=== PATIENT | female | born 1945 | race Caucasian/White ===

== ENCOUNTER → 2018-05-30 | Outpatient (CLI) | payer MEDICARE, BC ==
[2018-05-30 13:59] LABS: Anisocytosis Slight; HCT 36.8 % (34.0-46.0); HGB 12.2 gm/dL (11.4-16.0); MCH 29.3 pg (25.0-35.0); MCHC 33.1 g/dL (31.0-37.0); MCV 88.7 fL (80.0-100.0); Mean Platelet Volume 6.8; Platelet Count 188 k/uL (150-450); Poikilocytosis Slight; RBC 4.14 m/uL (3.80-5.40); WBC 6.5 k/uL (3.8-10.6)
[2018-05-30 14:03] LABS: Albumin 4.4 g/dL (3.5-5.0); Calcium 9.7 mg/dL (8.4-10.2); Potassium 4.1 mmol/L (3.5-5.1); Total Bilirubin 0.6 mg/dL (0.2-1.3); Total Protein 8.3 g/dL (6.3-8.2)
[2018-05-30 14:06] LABS: Partial Thromboplastin Time 25.4 sec (22.0-30.0); Prothrombin Time 10.3 sec (9.0-12.0)
[2018-05-30 14:25] LABS: Appearance,Urine Clear (Clear); Bilirubin,Urine Negative (Negative); Blood,Urine Negative (Negative); Color,Urine Yellow; Glucose,Urine (UA) Negative (Negative); Ketones,Urine Negative (Negative); Leukocyte Esterase,Urine Small (Negative); Mucus,Urine Rare /hpf; Nitrite,Urine Negative (Negative); PH, Urine 6.5 (5.0-8.0); Protein,Urine Negative (Negative); RBC,Urine 1 /hpf (0-5); Specific Gravity,Urine 1.018 (1.001-1.035); Squamous Epithelial Cell,Urine 4 /hpf (0-4); Urobilinogen,Urine <2.0 mg/dL (<2.0); WBC,Urine 4 /hpf (0-5)
== END | disposition home or self-care (01) ==
LOC: LABPAT 13:18
PROVIDERS: ATTEND Orthopaedic Surgery Sports Medicine
DX: Z01.812 Encounter for preprocedural laboratory examination (principal); Z79.01 Long term (current) use of anticoagulants
CPT/HCPCS: 36415; 80053; 81001; 85027; 85610; 85730; 87070

== ENCOUNTER 2018-06-12 10:39 | Day surgery (SDC) | payer MEDICARE, BC ==
[~2018-06-12 10:39] MED LIST: ACETAMINOPHEN TAB 500 MG TAB PO ONE; DEXAMETHASONE SOD PHOSPHATE 10 MG/ML 1 ML VIAL IV ONE; HYDROmorphone 0.5 MG/0.5 ML SYRINGE IVP PRN; LACTATED RINGERS 1,000 ML IV SCH; LIDOCAINE 1% 20 ML VIAL (10MG/ML) FOR IV START INTRADERMA PRN; MELOXICAM 7.5 MG TAB PO ONE; MIDAZOLAM 2 MG/2 ML VIAL IV PRN; ONDANSETRON 4 MG/2 ML VIAL IVP ONE; ROPIVACAINE 246.25 MG, EPINEPHrine 0.5 MG, KETOROLAC 30 MG, cloNIDine HCL/PF 80 MCG, WA... MISCELLANE ONE; SCOPOLAMINE 1.5MG/72HR PATCH TRANSDERM ONE; TRANEXAMIC ACID 1,000 MG in SODIUM CHLORIDE 0.9% 100 ML IVPB ONE; ceFAZolin IN SWFI 2 GM/20 ML SYRINGE IVP ONE
[2018-06-12] MEDS ORDERED: BISACODYL 10 MG SUPP RECTAL PRN (12:26)
[2018-06-12] MEDS ORDERED: ACETAMINOPHEN TAB 325 MG TAB PO PRN (12:26)
[2018-06-12] MEDS ORDERED: HYDROcodone/APAP 10-325MG 1 EACH TAB PO PRN (12:26)
[2018-06-12] MEDS ORDERED: MAGNESIUM HYDROXIDE 2,400 MG/10 ML CUP PO PRN (12:26)
[2018-06-12] MEDS ORDERED: NA PHOS,M-B/NA PHOS,DI-BA 133 ML ENEMA RECTAL PRN (12:26)
[2018-06-12] MEDS ORDERED: NALOXONE 0.4 MG/ML 1 ML VIAL IV PRN (12:26)
[2018-06-12] MEDS ORDERED: traMADol 50 MG TAB PO PRN (12:26)
[2018-06-12] MEDS ORDERED: HYDROcodone/APAP 7.5-325MG 1 EACH TAB PO PRN (12:26)
[2018-06-12] MEDS ORDERED: hydrOXYzine PAMOATE 25 MG CAP PO PRN (12:26)
[2018-06-12] MEDS ORDERED: HYDROcodone/APAP 5-325MG 1 EACH TAB PO PRN (12:26)
[2018-06-12] MEDS ORDERED: TEMAZEPAM 15 MG CAP PO PRN (12:26)
[2018-06-12] MEDS ORDERED: DIAZEPAM 5 MG TAB PO PRN (12:26)
[2018-06-12] MEDS ORDERED: ONDANSETRON 4 MG/2 ML VIAL IVP PRN (12:26)
[2018-06-12] MEDS ORDERED: HYDROmorphone 0.5 MG/0.5 ML SYRINGE IVP PRN ×3 (12:26)
[2018-06-12] MEDS ORDERED: MIDAZOLAM 2 MG/2 ML VIAL ONE (13:09)
[2018-06-12] MEDS ORDERED: SODIUM CHLORIDE 0.9% 100 ML BAG ONE (13:09)
[2018-06-12] MEDS ORDERED: MORPHINE SULFATE (PF) 0.3 MG/0.3 ML SYR ONE (13:09)
[2018-06-12] MEDS ORDERED: fentaNYL (PF) 50 MCG/ML 2 ML AMP ONE (13:09)
[2018-06-12] MEDS ORDERED: TRANEXAMIC ACID 1,000 MG/10 ML VIAL ONE (13:09)
[2018-06-12] MEDS ORDERED: diphenhydrAMINE 50 MG/ML 1 ML VIAL ONE (13:09)
[2018-06-12] MEDS ORDERED: ceFAZolin 1,000 MG in SODIUM CHLORIDE 0.9% 1,000 ML IRRIGATION ONE (13:45)
[2018-06-12] MEDS ORDERED: LACTATED RINGERS 1,000 ML IV ONE (14:15)
--- NOTE | 2018-06-12 15:48 | XR ---
EXAMINATION TYPE: XR knee limited LT DATE OF EXAM: 06/12/2018 CLINICAL HISTORY: Postoperative evaluation Two views of the left knee are submitted. Identified are changes of total knee arthroplasty with fem oral and tibial components appearing well seated. Postsurgical soft tissue changes are noted. Align ment is anatomic.
[2018-06-12] MEDS: LACTATED RINGERS 1,000 ML IV SCH (16:04)
[2018-06-12 16:25] VITALS: BMI 31.1
[2018-06-12] MEDS ORDERED: traZODone HCL 50 MG TAB PO PRN (19:31)
--- NOTE | 2018-06-12 19:33 | P.CONS ---
History of Present Illness - Reason for Consult Consult date: 06/12/18 - History of Present Illness Patient is a 72-year-old female with a PMH of hypertension, psoriasis, and chronic bilateral knee osteoarthritis was seen for consult status post total left knee replacement. The patient reports that her pain is very well controlled, and at the time of interview was 0 out of 10. She otherwise was in good spirits and denied any active complaints. She reports no fever, chills, shortness of breath, chest pain, abdominal pain, nausea, or vomiting. Review of Systems Pertinent positives and negatives as discussed in HPI, a complete review of systems was performed and all other systems are negative. Past Medical History Past Medical History: Hyperlipidemia, Hypertension, Osteoarthritis (OA), Skin Disorder Additional Past Medical History / Comment(s): hx. of UTI's, psoriasis, leg swelling, hx. of Valley fever 4-5 yrs ago History of Any Multi-Drug Resistant Organisms: None Reported Past Surgical History: Hysterectomy Past Anesthesia/Blood Transfusion Reactions: Previous Problems w/ Anesthesia Additional Past Anesthesia/Blood Transfusion Reaction / Comm: slow to wake up Past Psychological History: Anxiety Smoking Status: Never smoker Past Alcohol Use History: Occasional Past Drug Use History: None Reported - Past Family History Sister(s) Family Medical History: Cancer Medications and Allergies Home Medications Medication Instructions Recorded Confirmed Type Acetaminophen Tab [Tylenol Tab] 1,000 mg PO Q6HR PRN 06/04/18 06/12/18 History Adalimumab [Humira] 80 mg SQ TH 06/04/18 06/12/18 History Atorvastatin [Lipitor] 20 mg PO HS 06/04/18 06/12/18 History Cholecalciferol [Vitamin D3] 5,000 unit PO DAILY 06/04/18 06/12/18 History Cider Vinegar [Apple Cider Vinegar] 300 mg PO DAILY 06/04/18 06/12/18 History Cranberry Fruit Extract [Theracran] 650 mg PO DAILY 06/04/18 06/12/18 History Cyanocobalamin (Vitamin B-12) 1,000 mcg PO DAILY 06/04/18 06/12/18 History [Vitamin B-12] Folic Acid 1 mg PO DAILY 06/04/18 06/12/18 History Methotrexate Sodium [Methotrexate] 25 mg PO FR 06/04/18 06/12/18 History Sertraline [Zoloft] 50 mg PO DAILY 06/04/18 06/04/18 History Triamterene-Hctz 37.5-25Mg 1 tab PO Q2D 06/04/18 06/04/18 History [Maxzide 37.5-25] Ubidecarenone [Co Q-10] 100 mg PO DAILY 06/04/18 06/12/18 History traZODone HCL 50 mg PO HS PRN 06/04/18 06/12/18 History Allergies Allergy/AdvReac Type Severity Reaction Status Date / Time adhesive tape AdvReac pulls skin Verified 06/12/18 11:01 off sulfamethoxazole AdvReac Abdominal Verified 06/12/18 11:01 [From Bactrim] Pain trimethoprim [From Bactrim] AdvReac Abdominal Verified 06/12/18 11:01 Pain Physical Exam Vitals: Vital Signs Temp Pulse Resp BP Pulse Ox 06/12/18 18:12 100 126/60 06/12/18 18:02 91 125/65 06/12/18 17:31 87 145/80 96 06/12/18 17:17 97 138/71 95 06/12/18 17:01 86 138/71 95 06/12/18 16:47 90 131/71 95 06/12/18 16:31 97.8 F 78 119/71 97 06/12/18 15:45 84 16 132/58 96 06/12/18 15:27 87 15 110/57 96 06/12/18 15:10 97.1 F L 88 16 125/61 97 06/12/18 11:07 97.4 F L 91 16 140/67 97 Intake and Output 06/12/18 06/12/18 06/12/18 06:59 14:59 22:59 Intake Total 2000 100 Output Total 100 Balance 1901 100 Intake: IV 2000 100 Output: Estimated Blood Loss 100 General: non toxic, no distress, appears at stated age, obese Derm: no unusual rashes/lesions no unusual ecchymoses, warm, dry Head: atraumatic, normocephalic, symmetric Eyes: EOMI, no lid lag, anicteric sclera, pupils equal round reactive to light ENT: Nose and ears atraumatic, no thrush, no pharyngeal erythema Neck: No thyromegaly, no cervical lymphadenopathy, trachea midline, supple Mouth: no lip lesion, mucus membranes moist Cardiovascular: S1S2 reg, no murmur, positive posterior tibial pulse bilateral, no edema, capillary refill less than 2 seconds Lungs: CTA bilateral, no rhonchi, no rales , no accessory muscle use Abdominal: soft, nontender to palpation, no guarding, no appreciable organomegaly, normal bowel sounds Ext: no gross muscle atrophy, muscle strength 5 out of 5 in all extremities except left lower extremity, left knee Ramana bandage in place, clean and dry, no contractures, Neuro: CN II-XI grossly intact, light touch intact all 4 extremities, finger to nose within normal limits, Psych: Alert, oriented, appropriate affect Assessment and Plan Plan: Hypertension -Resume home medications Status post total left knee replacement -As per orthopedic service Postoperative pain, currently well controlled -Continue with management as per orthopedic service Psoriasis -Patient was advised to hold her Humira injections for 2 weeks prior to surgery in 2 weeks following surgery -Will follow-up 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
[2018-06-12] MEDS: ATORVASTATIN 20 MG TAB PO SCH (21:33)
[2018-06-12] MEDS: ceFAZolin IN SWFI 2 GM/20 ML SYRINGE IVP SCH (21:33)
[2018-06-12] MEDS: ASPIRIN 325 MG TAB PO SCH (21:33)
[2018-06-12] MEDS: SENNOSIDES-DOCUSATE SODIUM 1 EACH TAB PO SCH (21:33)
--- NOTE | 2018-06-12 22:53 | OP ---
OPERATIVE REPORT DATE OF PROCEDURE: 06/12/2018 SURGEON: Gianni Lyman MD. SHELLAC POLISHER: Madhav VIVEROS. PREOPERATIVE DIAGNOSIS: Left knee osteoarthrosis. POSTOPERATIVE DIAGNOSIS: Left knee osteoarthrosis. OPERATION: Left total knee arthroplasty. ANESTHESIA: Spinal with sedation. ESTIMATED BLOOD LOSS: 100 mL. TOURNIQUET TIME: 49 minutes at 250 mmHg. COMPLICATIONS: None apparent. DRAINS: None. DISPOSITION: Post-Anesthesia Care Unit. INDICATIONS: Robert is a very pleasant 72-year-old female with a longstanding history of left knee pain. History and physical examination were consistent with advanced left knee osteoarthrosis. She has been through significant nonoperative management up to this point. Further treatment options were discussed and she decided to go forward with left total knee arthroplasty. The risks of the procedure were discussed with her in detail. These risks included but were not limited to risk of infection, nerve damage, bleeding, pain, and a small risk of deep vein thrombosis which could lead to fatal pulmonary embolism. There is also risk of loosening of the implant which could require revision operation. The patient understands these risks. All of her questions were answered to her satisfaction. Appropriate informed consent was obtained. DESCRIPTION OF THE PROCEDURE: The patient was identified in the preoperative holding area. Surgical site was marked by both the patient and myself. She was given 2 grams of Ancef IV for prophylactic purposes. She was then transferred to the operative suite. She was placed supine on the operating room table. Spinal anesthetic was then administered and dosed per the anesthesia department without apparent complication. Examination under anesthesia was then performed. The patient was 2-3 degrees shy of full extension. She had 100 degrees of flexion, and the medial collateral ligament, lateral collateral ligament and posterior cruciate ligaments were stable. Tourniquet was then placed high on the left upper thigh, well padded in preparation for surgery. The patient's left lower extremity was then prepped and draped in usual sterile fashion. Standard surgical pause was then undertaken to ensure that we were operating on the correct site and that appropriate preoperative antibiotics had been given. All staff in the room were in agreement and we proceeded. The outlines of the patella were marked with a surgical pen. A planned 12 cm vertical incision centered over the patella was marked with the surgical pen. The leg was then exsanguinated with an Esmarch dressing. The knee was then flexed and the tourniquet was inflated to 250 mmHg. The total tourniquet time for the procedure was 49 minutes. Incision was then made with a 10 blade scalpel. Dissection was carried down sharply to the overlying fascia. Great care was taken to minimize the skin flaps. The knee was then exposed using standard medial parapatellar approach. A small cuff of quadriceps tendon was left for suturing. She was in a bit of varus preoperatively. A standard medial release was then made. Superficial medial collateral ligament was dissected off of the bone around to the posterior aspect of the proximal tibia. The medial meniscus was then excised as well. The lateral meniscus was also released anteriorly. The leg was then externally rotated. The patella was everted. The knee was flexed. Retractors then placed to protect the collateral ligaments. I then proceeded to remove the infrapatellar fat pad. This was excised sharply tangentially with the fibers of the patellar tendon. I then proceeded to remove the peripheral osteophytes. This was done with a rongeur. I then proceeded with the distal femoral resection. She did have near-full extension. The planned 9 mm resection was then done. The femoral canal was then entered in the midline of the femur approximately 10 mm anterior to the origin of the posterior cruciate ligament. The lazaro was then advanced down to the center of the femur and placed intramedullary. Based on preoperative radiographs, the angle between the anatomic and mechanical axis of the femur was approximately 4-5 degrees. The valgus angle of the distal femoral cutting guide was then set at 4 degrees for the left knee. The distal femoral cutting guide was then advanced over the intramedullary lazrao. This was seated firmly against the femur. I then, as mentioned, planned to take 9 mm off the distal femur. The cutting block was then secured onto the femur with pins. The jig was removed. The distal femoral cut was made through the slot of the block. The pins were then removed and the distal femoral cutting block was removed. The accuracy of the distal femoral cuts was checked with 2 flat bars. I then proceeded to femoral sizing. Posterior referencing sizing guide was held firmly against the resected distal surface of the femur. The posterior condyles were resting on the posterior plane of the guide. The sizing guide was then placed on the anterior femur. The size was measured as a size 9. I then assessed for femoral rotation. Plan was for 3 degrees of external rotation. Three degrees of external rotation was placed onto the jig. The holes were then marked. I then confirmed the rotation by 3 separate methods. This was done using the epicondylar axis as well as Whitesides line and posterior referencing. It was deemed that the external rotation was proper. I then went forward with placing the femoral cutting block. This was placed over the previously placed pin holes. The Michel wing was then placed onto the anterior slots to ensure that we would not notch the anterior femur with the anterior femoral cut. I then proceeded with the anterior femoral cut. This was flush with the anterior cortex of the femur. The posterior cuts were then made followed by the anterior chamfer cut, then the posterior chamfer cut. The cutting block was then removed. Throughout the resection, the collateral ligaments were protected with retractors. I then placed a trial size 9 femur. It fit slightly wide mediolateral, but the narrow fit very well. The drill holes were then made. I then proceeded with the tibial cut. I planned for a cruciate-retaining knee. The guide was placed and set for varus, valgus and for slope. The height was set for an approximate 2 mm resection from the medial tibial plateau, which was the lower side. I was happy with the alignment and the amount of resection. The cutting block was then pinned to the proximal tibia. The alignment lazaro was removed and the proximal tibia was resected with a reciprocating saw. Again this was done with retractors protecting the collateral ligaments as well as the posterior cruciate ligament. I then proceeded to evaluate the flexion and extension gaps. A 10 mm block was then placed. The flexion and extension gaps were equal. I then proceeded with resection of the posterior osteophytes. She had very minimal posterior osteophytes. This was done using a curved osteotome. This resected the posterior osteophytes, and posterior capsule stripping was also done off the posterior aspect of the femur at this time. The osteophytes were then removed. I then proceeded with resection of the patella. The thickness of the patella was measured using the caliper. The thickness was 22 mm. The thickness of the anticipated patellar dome was taken into account. Resection was then performed and confirmed to be equal in 4 quadrants using a caliper. Approximately 14 mm of bone remained after the resection. A 32 x 8.5 mm standard patellar trial was then placed. The holes were drilled. The trial was then placed. I then proceeded with sizing the tibial plate. A size D tibial plate fit very nicely. I then placed the trial femur, the tibial tray and the patellar button. A 10 mm trial tibial insert was also placed. The components fit very nicely. She had full extension and flexion. The extension and flexion gaps were equal and stable to both varus and valgus stress. The patella tracked appropriately. Tibial tray rotation was marked with a Bovie. This was externally rotated properly. I then proceeded with tibial preparation. I first drilled the femoral holes and removed the femoral component. The tibial tray was then set for proper external rotation as well as mediolateral placement onto the tibia. It was then pinned into place. I then proceeded with punching the keel. I then decided to proceed with cementing of all of our components. The knee was thoroughly irrigated with sterile saline solution via pulse lavage. The lateral geniculate artery was identified and cauterized. All blood was removed from the bone of the tibia, femur and patella with pulse lavage. I then proceed with cementing. Two packs of antibiotic bone cement were prepared on the back table by the surgical physician assistant. I then proceeded with cementing of the tibia first. The cement was impacted into the keel as well as deeply seated into the bone. A second coat of cement was then placed. The tibia was then impacted into place. Excess cement was removed with Gilda's and jokers. I then proceeded with cementing of the femoral component. The femoral component was also cemented using standard technique. Excess cement was removed. A 10 mm trial insert was then placed into the knee. It was brought into full extension with a constant axial load placed until the cement had hardened. The patellar component was then cemented. This was held firmly with a compressive device until the cement had dried. When the cement had dried, the knee was taken out of extension. All excess cement was removed from around the prosthesis. I then trialed the knee with a 10 mm insert. Flexion and extension gaps were appropriate. The knee was stable. It came into full extension. I decided to go forward with a 10 mm cross-linked cruciate-retaining tibial insert. Polyethylene was then placed onto the tibial tray and locked into place. The knee was then reduced. The knee was again further irrigated with sterile saline solution with antibiotic added. The tourniquet was then deflated. The total tourniquet time for the procedure was 49 minutes at 250 mmHg. Final components were Danielle Persona size 9 narrow cruciate-retaining femoral component, a size D tibial tray, a 10 mm medial- congruent cruciate-retaining polyethylene insert and a 32 x 8.5 mm patella. I then proceeded with closure. Again the knee was thoroughly irrigated. The quadriceps tendon and the medial retinaculum were reapproximated with #2 Ethibond suture. The extensor mechanism was then closed with a running #2 Quill suture. Subcutaneous tissues were then closed with 2-0 Vicryl interrupted suture. The skin was closed with a running 3-0 Quill suture. Dermabond was applied to the incision. Sterile compressive dressings were then applied. All sponge and needle counts were deemed correct prior to closure. The patient tolerated the procedure without apparent complication. She was transferred to the recovery room in stable condition. MMODL / IJN: [id number] /
[2018-06-13] MEDS: LACTATED RINGERS 1,000 ML IV SCH ×2 (03:18→17:27)
[2018-06-13] MEDS: ceFAZolin IN SWFI 2 GM/20 ML SYRINGE IVP SCH (05:06)
[2018-06-13] MEDS: ASPIRIN 325 MG TAB PO SCH ×2 (08:38→20:29)
[2018-06-13] MEDS: SERTRALINE 50 MG TAB PO SCH (08:38)
[2018-06-13] MEDS: MULTIVITAMINS, THERA 1 EACH TAB PO SCH (08:38)
[2018-06-13 09:24] LABS: Basophils % (A) 0 %; Eosinophils % (A) 0 %; HCT 30.1 % (34.0-46.0); HGB 10.1 gm/dL (11.4-16.0); Lymphocytes # (A) 0.9 k/uL (1.0-4.8); Lymphocytes % (A) 10 %; MCH 29.7 pg (25.0-35.0); MCHC 33.6 g/dL (31.0-37.0); MCV 88.5 fL (80.0-100.0); Monocytes # (A) 0.3 k/uL (0-1.0); Monocytes % (A) 4 %; Neutrophils % (A) 83 %; Platelet Count 157 k/uL (150-450); Poikilocytosis Slight; RBC 3.41 m/uL (3.80-5.40); RDW 14.8 % (11.5-15.5); WBC 8.4 k/uL (3.8-10.6)
--- NOTE | 2018-06-13 10:04 | P.PN ---
Subjective Progress Note Date: 06/13/18 Patient was seen and examined at the bedside on 06/13/2018. She reports that her left knee pain continues to be well-controlled, and at time of the interview was a 0 out of 10. She has been ambulating to the restroom, having bowel movements and passing urine. She otherwise denied any active complaints and was in good spirits. She denied chest pain, shortness of breath, nausea, vomiting, abdominal pain, fever, or chills. Objective - Vital Signs Vital signs: Vital Signs Temp 98.0 F 06/13/18 07:24 Pulse 80 06/13/18 07:24 Resp 15 06/13/18 07:24 BP 91/55 06/13/18 07:24 Pulse Ox 95 06/13/18 07:24 Intake & Output 06/12/18 06/13/18 06/13/18 18:59 06:59 18:59 Intake Total 2101 600 480 Output Total 100 Balance 2000 600 480 Intake: IV 2101 Intake, IV Titration 600 Amount Lactated Ringers 1,000 ml 600 @ 75 mls/hr IV .[id number] [facility] Rx#:[id number] Oral 480 Output: Estimated Blood Loss 100 Other: # Voids 1 - Exam General: Non-toxic, in no acute distress, appears stated age, normal weight HEENT: NC/AT, anicteric sclerae, moist conjunctiva, no lid-lag, PERRLA Cardiovascular: S1/S2 wnl, no murmurs, rubs, or gallops Lungs: Clear to auscultation, normal respiratory effort, no accessory muscle use Abdominal: Soft, non-tender, non-distended, no guarding, rebound, or rigidity Skin: Warm, dry Extremities: No edema or contractures, left knee dressing in place, clean and dry Psychiatric: Alert and oriented to person, place and time, appropriate affect Neuro: CN II-XII grossly intact, Strength 5/5 in all extremities except left lower extremity, Speech intact, Sensation to light touch grossly intact throughout - Labs CBC & Chem 7: 06/13/18 08:25 Labs: Abnormal Lab Results - Last 24 Hours (Table) 06/13/18 Range/Units 08:25 RBC 3.41 L (3.80-5.40) m/uL Hgb 10.1 L (11.4-16.0) gm/dL Hct 30.1 L (34.0-46.0) % Lymphocytes # 0.9 L (1.0-4.8) k/uL Assessment and Plan Plan: Hypertension -C/w home medications Status post total left knee replacement -As per orthopedic service Postoperative pain, currently well controlled -Continue with management as per orthopedic service Psoriasis -Patient was advised to hold her Humira injections for 2 weeks prior to surgery in 2 weeks following surgery -Will follow-up with her outpatient 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
--- NOTE | 2018-06-13 10:35 | P.PN ---
Subjective Progress Note Date: 06/13/18 Principal diagnosis: S/P left TKA Patient is seen at bedside this morning. She is postop day #1 from left total knee arthroplasty. She has pain at the surgical site as expected but denies any new complaints. She denies numbness, tingling or calf pain. Review of systems is negative for fever, chills, chest pain, shortness of breath or other Objective - Vital Signs Vital signs: Vital Signs Temp 98.0 F 06/13/18 07:24 Pulse 80 06/13/18 07:24 Resp 15 06/13/18 07:24 BP 91/55 06/13/18 07:24 Pulse Ox 95 06/13/18 07:24 Intake & Output 06/12/18 06/13/18 06/13/18 18:59 06:59 18:59 Intake Total 2101 600 480 Output Total 100 Balance 2000 600 480 Intake: IV 2101 Intake, IV Titration 600 Amount Lactated Ringers 1,000 ml 600 @ 75 mls/hr IV .[id number] Rx#:[id number] Oral 480 Output: Estimated Blood Loss 100 Other: # Voids 1 2 - Exam Inspection reveals a benign surgical wound. There is no active bleeding or drainage. Neurovascular status is intact throughout the lower extremity with motor and sensation fully intact. Calf is soft and nontender. 2+ dorsalis ped is pulse and less than 2 second cap refill is present. - Constitutional General appearance: Present: no acute distress - Labs CBC & Chem 7: 06/13/18 08:25 Labs: Abnormal Lab Results - Last 24 Hours (Table) 06/13/18 Range/Units 08:25 RBC 3.41 L (3.80-5.40) m/uL Hgb 10.1 L (11.4-16.0) gm/dL Hct 30.1 L (34.0-46.0) % Lymphocytes # 0.9 L (1.0-4.8) k/uL Assessment and Plan (1) S/P total knee arthroplasty Narrative/Plan: She will continue with routine postop orthopedic protocol including pain management, wound care, PT, DVT prophylaxis and medical management. Expect that she will transfer to home tomorrow Current Visit: Yes Status: Acute Code(s): Z96.659 - PRESENCE OF UNSPECIFIED ARTIFICIAL KNEE JOINT SNOMED Code(s): 0041174703813 Time with Patient: Less than 30
[2018-06-13] MEDS: HYDROcodone/APAP 5-325MG 1 EACH TAB PO PRN ×2 (15:11→23:05)
[2018-06-13] MEDS: SENNOSIDES-DOCUSATE SODIUM 1 EACH TAB PO SCH (20:29)
[2018-06-13] MEDS: ATORVASTATIN 20 MG TAB PO SCH (20:29)
[2018-06-14] MEDS: LACTATED RINGERS 1,000 ML IV SCH ×2 (02:48→07:55)
[2018-06-14] MEDS: HYDROcodone/APAP 5-325MG 1 EACH TAB PO PRN ×4 (05:55→23:34)
[2018-06-14] MEDS: SERTRALINE 50 MG TAB PO SCH (08:00)
[2018-06-14] MEDS: MULTIVITAMINS, THERA 1 EACH TAB PO SCH (08:00)
[2018-06-14] MEDS: ASPIRIN 325 MG TAB PO SCH ×2 (08:00→20:03)
--- NOTE | 2018-06-14 08:57 | P.DS ---
Providers Expected date of discharge: 06/14/18 Attending physician: Gianni Lyman Consults: 06/12/18 12:26 Consult Physician Routine Consulting Provider: Gen Schwartz Consult Reason/Comments: post op medical management Do you want consulting provider notified?: Yes Primary care physician: Gato Cardoso MD - Discharge Diagnosis(es) (1) S/P total knee arthroplasty Patient was admitted to the OR on 06/12/2018 to undergo a left total knee arthroplasty. She had failed conservative measures as an outpatient and desired to proceed with elective surgery after given informed consent. She underwent the above procedure which she tolerated well without complication. Postoperative hospital course has remained without complication. On day of discharge she is afebrile, vital signs stable, labs within acceptable ranges, tolerating by mouth meds and diet, voiding without difficulty, positive flatus, denies abdominal pain or calf pain, pain is controlled on oral pain medication and has no new c omplaints. Wound is benign, neurovascular status is intact, calf is soft and nontender, abdomen soft and nontender. Review of systems is negative for numbness, tingling, fever, chills, chest pain, shortness breath, nausea, vomiting, dizziness, headaches, slurred speech or other Current Visit: Yes Status: Acute Priority: Medium Procedures: Left TKA Patient Condition at Discharge: Good Plan - Discharge Summary Discharge Rx Participant: Yes New Discharge Prescriptions: New Aspirin 325 mg PO BID #60 tab Docusate [Colace] 100 mg PO BID #60 capsule HYDROcodone/APAP 7.5-325MG [[place] 7.5-325] 1 - 2 tab PO Q6HR PRN #56 tab PRN Reason: Pain No Action traZODone HCL 50 mg PO HS PRN PRN Reason: sleeping Folic Acid 1 mg PO DAILY Cholecalciferol [Vitamin D3] 5,000 unit PO DAILY Atorvastatin [Lipitor] 20 mg PO HS Acetaminophen Tab [Tylenol Tab] 1,000 mg PO Q6HR PRN PRN Reason: Pain Triamterene-Hctz 37.5-25Mg [Maxzide 37.5-25] 1 tab PO Q2D Sertraline [Zoloft] 50 mg PO DAILY Methotrexate Sodium [Methotrexate] 25 mg PO FR Ubidecarenone [Co Q-10] 100 mg PO DAILY Cyanocobalamin (Vitamin B-12) [Vitamin B-12] 1,000 mcg PO DAILY Cranberry Fruit Extract [Theracran] 650 mg PO DAILY Cider Vinegar [Apple Cider Vinegar] 300 mg PO DAILY Adalimumab [Humira] 80 mg SQ TH Discharge Medication List Acetaminophen Tab [Tylenol Tab] 1,000 mg PO Q6HR PRN 06/04/18 [History] Adalimumab [Humira] 80 mg SQ TH 06/04/18 [History] Atorvastatin [Lipitor] 20 mg PO HS 06/04/18 [History] Cholecalciferol [Vitamin D3] 5,000 unit PO DAILY 06/04/18 [History] Cider Vinegar [Apple Cider Vinegar] 300 mg PO DAILY 06/04/18 [History] Cranberry Fruit Extract [Theracran] 650 mg PO DAILY 06/04/18 [History] Cyanocobalamin (Vitamin B-12) [Vitamin B-12] 1,000 mcg PO DAILY 06/04/18 [History] Folic Acid 1 mg PO DAILY 06/04/18 [History] Methotrexate Sodium [Methotrexate] 25 mg PO FR 06/04/18 [History] Sertraline [Zoloft] 50 mg PO DAILY 06/04/18 [History] Triamterene-Hctz 37.5-25Mg [Maxzide 37.5-25] 1 tab PO Q2D 06/04/18 [History] Ubidecarenone [Co Q-10] 100 mg PO DAILY 06/04/18 [History] traZODone HCL 50 mg PO HS PRN 06/04/18 [History] Aspirin 325 mg PO BID #60 tab 06/14/18 [Rx] Docusate [Colace] 100 mg PO BID #60 capsule 06/14/18 [Rx] HYDROcodone/APAP 7.5-325MG [[place] 7.5-325] 1 - 2 tab PO Q6HR PRN #56 tab 0 04/30 [Rx] Follow up Appointment(s)/Referral(s): [facility]idential [facility] [NON-STAFF] - As Needed Activity/Diet/Wound Care/Special Instructions: Keep wound clean and dry Take meds as directed Follow-up with Dr. Lyman in office Weight bear as tolerated May shower in 3 days if no bleeding Discharge Disposition: HOME WITH HOME HEALTH SERVICES
--- NOTE | 2018-06-14 09:20 | P.PN ---
Subjective Progress Note Date: 06/14/18 Patient was seen and examined at the bedside on 06/14/2018. Patient notes that her knee is sore this morning, with left thigh pain, 4 out of 10. She has however been ambulating to the bathroom with a walker. The patient notes that she has in fact not had a bowel movement since admission though has been passing urine. She otherwise denied any active complaints and is eager to be discharged. She denied chest pain, shortness of breath, nausea, vomiting, fever, or chills. Objective - Vital Signs Vital signs: Vital Signs Temp 97.8 F 06/14/18 07:00 Pulse 90 06/14/18 07:00 Resp 16 06/14/18 07:00 BP 98/60 06/14/18 07:00 Pulse Ox 95 06/14/18 07:00 Intake & Output 06/13/18 06/14/18 06/14/18 18:59 06:59 18:59 Intake Total 1140 480 Balance 1140 480 Intake: Oral 1140 480 Other: Voiding Method Toilet # Voids 2 2 - Exam General: Non-toxic, in no acute distress, appears stated age, normal weight HEENT: NC/AT, anicteric sclerae, moist conjunctiva, no lid-lag, PERRLA Cardiovascular: S1/S2 wnl, no murmurs, rubs, or gallops Lungs: Clear to auscultation, normal respiratory effort, no accessory muscle use Abdominal: Soft, non-tender, non-distended, no guarding, rebound, or rigidity Skin: Warm, dry Extremities: No edema or contractures, left knee dressing in place, clean and dry Psychiatric: Alert and oriented to person, place and time, appropriate affect Neuro: CN II-XII grossly intact, Strength 5/5 in all extremities except left lower extremity, Speech intact, Sensation to light touch grossly intact throughout - Labs CBC & Chem 7: 06/13/18 08:25 Labs: Abnormal Lab Results - Last 24 Hours (Table) 06/13/18 Range/Units 08:25 RBC 3.41 L (3.80-5.40) m/uL Hgb 10.1 L (11.4-16.0) gm/dL Hct 30.1 L (34.0-46.0) % Lymphocytes # 0.9 L (1.0-4.8) k/uL Assessment and Plan Plan: Hypertension -C/w home medications Status post total left knee replacement -As per orthopedic service -Scheduled for discharge for today Postoperative pain, currently well controlled -Continue with management as per orthopedic service -Will be discharged on [place] and aspirin 325 twice a day Psoriasis -Patient was advised to hold her Humira injections for 2 weeks prior to surgery in 2 weeks following surgery -She will follow-up with her outpatient business economist
[2018-06-14] MEDS: TRIAMTERENE-HCTZ 37.5-25MG 1 EACH TAB PO SCH ×2 (09:26→12:20)
[2018-06-14] MEDS: SENNOSIDES-DOCUSATE SODIUM 1 EACH TAB PO SCH (20:03)
[2018-06-14] MEDS: ATORVASTATIN 20 MG TAB PO SCH (20:03)
[2018-06-15] MEDS: LACTATED RINGERS 1,000 ML IV SCH (01:05)
[2018-06-15 08:02] LABS: Basophils % (A) 0 %; Eosinophils # (A) 0.2 k/uL (0-0.7); Eosinophils % (A) 3 %; HCT 30.8 % (34.0-46.0); HGB 10.1 gm/dL (11.4-16.0); Lymphocytes # (A) 0.7 k/uL (1.0-4.8); Lymphocytes % (A) 12 %; MCHC 32.7 g/dL (31.0-37.0); MCV 88.6 fL (80.0-100.0); Mean Platelet Volume 6.5; Monocytes # (A) 0.2 k/uL (0-1.0); Monocytes % (A) 4 %; Neutrophils # (A) 4.3 k/uL (1.3-7.7); Neutrophils % (A) 78 %; Platelet Count 147 k/uL (150-450); RBC 3.48 m/uL (3.80-5.40); RDW 14.4 % (11.5-15.5); WBC 5.5 k/uL (3.8-10.6)
[2018-06-15 08:42] VITALS: BP 140/71; PULSE 95; RESP 16; TEMP 98.7
[2018-06-15] MEDS: ASPIRIN 325 MG TAB PO SCH (09:01)
[2018-06-15] MEDS: HYDROcodone/APAP 5-325MG 1 EACH TAB PO PRN (09:01)
[2018-06-15] MEDS: SERTRALINE 50 MG TAB PO SCH (09:02)
--- NOTE | 2018-06-15 09:44 | P.PN ---
Progress Note - Text Progress Note Date: 06/15/18 This is a 72-year-old female who is status post total left knee arthroplasty. Her discharge was held yesterday for pain management. She is doing better today. Vital signs and labs are stable. Incision looks good with no erythema or drainage. There is mild ecchymosis. Neurovascular status to the lower extremities intact. The patient is discharged to home in good condition. Please see previous discharge summary and med rec for accurate list of home medications.
== END 2018-06-15 13:36 | disposition home health service (06) ==
LOC: OR 10:39 → EDSTATUS 12:30 → 4SSUR 15:31 → OR 06-15 13:36
PROVIDERS: ATTEND Orthopaedic Surgery Sports Medicine
DX: M17.12 Unilateral primary osteoarthritis, left knee (principal); L40.9 Psoriasis, unspecified; I10 Essential (primary) hypertension; J98.4 Other disorders of lung; F32.9 Major depressive disorder, single episode, unspecified; K74.60 Unspecified cirrhosis of liver; E78.5 Hyperlipidemia, unspecified; Z87.440 Personal history of urinary (tract) infections; Z87.09 Personal history of other diseases of the respiratory system; Z79.899 Other long term (current) drug therapy; Z88.1 Allergy status to other antibiotic agents; Z88.8 Allergy status to other drugs, medicaments and biological substances; Z88.2 Allergy status to sulfonamides
CPT/HCPCS: 27447; 97116; 97162; 85025 ×2; 88300; 73560; C1776; C1713; J2250; J0171; J1200; J1100; J2405; J0690 ×3; J2274; J3010; J1885; J2795; J0735; J1170

== ENCOUNTER → 2020-05-24 | Outpatient (CLI) | payer MEDICARE, BC ==
[2020-05-24 16:18] LABS: Appearance,Urine Cloudy (Clear); Bacteria,Urine Occasional /hpf; Bilirubin,Urine Negative (Negative); Blood,Urine Negative (Negative); Color,Urine Yellow; Glucose,Urine (UA) Negative (Negative); Ketones,Urine Negative (Negative); Leukocyte Esterase,Urine Large (Negative); Mucus,Urine Rare /hpf; Nitrite,Urine Negative (Negative); PH, Urine 6.5 (5.0-8.0); Protein,Urine Negative (Negative); RBC,Urine 1 /hpf (0-5); Specific Gravity,Urine 1.018 (1.001-1.035); Squamous Epithelial Cell,Urine 8 /hpf (0-4); Urobilinogen,Urine <2.0 mg/dL (<2.0); WBC,Urine 11 /hpf (0-5)
[2020-05-24 17:36] LABS: Albumin 4.2 g/dL (3.5-5.0); Calcium 9.6 mg/dL (8.4-10.2); HCT 33.4 % (34.0-46.0); HGB 11.6 gm/dL (11.4-16.0); MCH 28.6 pg (25.0-35.0); MCHC 34.8 g/dL (31.0-37.0); MCV 82.3 fL (80.0-100.0); Mean Platelet Volume 7.2; Platelet Count 150 k/uL (150-450); Potassium 4.3 mmol/L (3.5-5.1); RBC 4.06 m/uL (3.80-5.40); RDW 14.7 % (11.5-15.5); Total Bilirubin 0.6 mg/dL (0.2-1.3); Total Protein 8.8 g/dL (6.3-8.2); WBC 5.7 k/uL (3.8-10.6)
[2020-05-24 17:41] LABS: Partial Thromboplastin Time 24.1 sec (22.0-30.0); Prothrombin Time 10.6 sec (9.0-12.0)
== END | disposition home or self-care (01) ==
LOC: LABPAT 14:56
PROVIDERS: ATTEND Orthopaedic Surgery Sports Medicine
DX: Z01.818 Encounter for other preprocedural examination (principal); Z01.812 Encounter for preprocedural laboratory examination
CPT/HCPCS: 36415; 80053; 81001; 85027; 85610; 85730; 87070; 93005

== ENCOUNTER 2020-06-03 05:36 | Day surgery (SDC) | payer MEDICARE, BC ==
[2020-05-31 16:06] VITALS: BMI 31.7
[~2020-06-03 05:36] MED LIST changes: -ACETAMINOPHEN TAB 500 MG TAB PO ONE; +ACETAMINOPHEN TAB 500 MG TAB PO PRN; -DEXAMETHASONE SOD PHOSPHATE 10 MG/ML 1 ML VIAL IV ONE; +GABAPENTIN 300 MG CAP PO PRN; -HYDROmorphone 0.5 MG/0.5 ML SYRINGE IVP PRN; -LACTATED RINGERS 1,000 ML IV SCH; -LIDOCAINE 1% 20 ML VIAL (10MG/ML) FOR IV START INTRADERMA PRN; -MELOXICAM 7.5 MG TAB PO ONE; +MELOXICAM 7.5 MG TAB PO PRN; -MIDAZOLAM 2 MG/2 ML VIAL IV PRN; -ONDANSETRON 4 MG/2 ML VIAL IVP ONE; +ONDANSETRON 4 MG/2 ML VIAL IVP PRN; -ROPIVACAINE 246.25 MG, EPINEPHrine 0.5 MG, KETOROLAC 30 MG, cloNIDine HCL/PF 80 MCG, WA... MISCELLANE ONE; +ROPIVACAINE/EPI/CLONIDINE/KET 50 ML SYRINGE MISCELLANE PRN; -SCOPOLAMINE 1.5MG/72HR PATCH TRANSDERM ONE; -TRANEXAMIC ACID 1,000 MG in SODIUM CHLORIDE 0.9% 100 ML IVPB ONE; +TRANEXAMIC ACID 1,000 MG in SODIUM CHLORIDE 0.9% 100 ML IVPB PRN; -ceFAZolin IN SWFI 2 GM/20 ML SYRINGE IVP ONE
[2020-06-03] MEDS ORDERED: ONDANSETRON 4 MG/2 ML VIAL IVP ONE (06:11)
[2020-06-03] MEDS ORDERED: MIDAZOLAM 2 MG/2 ML VIAL IV PRN (06:11)
[2020-06-03] MEDS ORDERED: DEXAMETHASONE SOD PHOSPHATE 4 MG/ML 1 ML VIAL IV ONE (06:11)
[2020-06-03] MEDS: LACTATED RINGERS 1,000 ML IV SCH ×3 (06:32→21:14)
[2020-06-03] MEDS ORDERED: LIDOCAINE 1% (10MG/ML) FOR IV START INTRADERMA ONE (06:33)
[2020-06-03] MEDS ORDERED: TRANEXAMIC ACID 1,000 MG/10 ML VIAL ONE (06:55)
[2020-06-03] MEDS ORDERED: SODIUM CHLORIDE 0.9% 100 ML BAG ONE (06:55)
[2020-06-03] MEDS ORDERED: MIDAZOLAM 2 MG/2 ML VIAL ONE (06:55)
[2020-06-03] MEDS ORDERED: ROPIVACAINE 5 MG/ML 30 ML VIAL ONE (06:55)
[2020-06-03] MEDS ORDERED: fentaNYL (PF) 50 MCG/ML 2 ML AMP ONE (06:55)
[2020-06-03] MEDS ORDERED: PROPOFOL 10 MG/ML 20 ML VIAL IV ONE (06:55)
[2020-06-03] MEDS ORDERED: HYDROmorphone 0.5 MG/0.5 ML SYRINGE IVP PRN ×3 (07:00→08:58)
[2020-06-03] MEDS ORDERED: LACTATED RINGERS 1,000 ML IV ONE (07:56)
[2020-06-03] MEDS ORDERED: bisacodyL 10 MG SUPP RECTAL PRN (08:58)
[2020-06-03] MEDS ORDERED: NALOXONE 0.4 MG/ML 1 ML VIAL IV PRN (08:58)
[2020-06-03] MEDS ORDERED: ACETAMINOPHEN TAB 325 MG TAB PO PRN (08:58)
[2020-06-03] MEDS ORDERED: diazePAM 5 MG TAB PO PRN (08:58)
[2020-06-03] MEDS ORDERED: HYDROcodone/APAP 10-325MG 1 EACH TAB PO PRN (08:58)
[2020-06-03] MEDS ORDERED: traMADol 50 MG TAB PO PRN (08:58)
[2020-06-03] MEDS ORDERED: MAGNESIUM HYDROXIDE 2,400 MG/10 ML CUP PO PRN (08:58)
[2020-06-03] MEDS ORDERED: TEMAZEPAM 15 MG CAP PO PRN (08:58)
[2020-06-03] MEDS ORDERED: HYDROmorphone 0.2 MG/1 ML SYRINGE IVP PRN (08:58)
[2020-06-03] MEDS ORDERED: NA PHOS,M-B/NA PHOS,DI-BA 133 ML ENEMA RECTAL PRN (08:58)
[2020-06-03] MEDS ORDERED: ONDANSETRON 4 MG/2 ML VIAL IVP PRN (08:58)
[2020-06-03] MEDS ORDERED: ROPIVACAINE 0.2%-NS ON-Q PUMP 1,090 MG, EMPTY PAIN BALL 1 EACH MISCELLANE PRN (09:09)
--- NOTE | 2020-06-03 09:11 | P.ANPRN ---
Procedure Note - Anesthesia - Nerve Block Performed Right Adductor Canal Infusion Time Out Performed: Yes Date of Procedure: 06/03/20 Procedure Start Time: 06:53 Procedure Stop Time: 06:58 Location of Patient: PreOp Indication: Acute Post-Operative Pain, Requested by Surgeon Sedation Type: Sedate with meaningful contact maintained Preparation: Sterile Prep, Sterile Dressing Position: Supine Catheter: Indwelling Needle Types: Pajunk Needle Gauge: 21 Ultrasound used to visualize needle placement: Yes Ultrasound used to observe medication spread: Yes Blood Aspirated: No Pain Paresthesia on Injection Noted: No Resistance on Injection: Normal Image Stored and Saved: Yes Events: Uneventful and Well Tolerated (ropi .5% 20cc plus dexametasone 4mg)
--- NOTE | 2020-06-03 09:37 | XR ---
EXAMINATION TYPE: XR knee limited RT DATE OF EXAM: 06/03/2020 CLINICAL HISTORY: Right knee pain and arthritis status post total knee replacement. TECHNIQUE: Portable AP and crosstable lateral views of the right knee are obtained immediately posto peratively. COMPARISON: None FINDINGS: Metallic hardware from total right knee arthroplasty is seen and appears satisfactory in a lignment and position. There is evidence of recent surgery with diffuse subcutaneous gas and soft ti ssue swelling extending superiorly noted. IMPRESSION: METALLIC HARDWARE FROM TOTAL RIGHT KNEE ARTHROPLASTY IS SATISFACTORY IN ALIGNMENT.
--- NOTE | 2020-06-03 11:21 | OP ---
OPERATIVE REPORT DATE OF PROCEDURE: 06/03/2020. SURGEON: Gianni Lmyan MD. SOFTWARE ENGINEERING PROJECT MANAGER: Madhav VIVEROS. PREOPERATIVE DIAGNOSIS: Right knee osteoarthrosis. POSTOPERATIVE DIAGNOSIS: Right knee osteoarthrosis. OPERATION: Right total knee arthroplasty. ANESTHESIA: Spinal with sedation. ESTIMATED BLOOD LOSS: 100 mL. TOURNIQUET: Tourniquet time was 45 minutes at 250 mmHg. COMPLICATIONS: None apparent. DRAINS: None. DISPOSITION: Postanesthesia care unit. INDICATIONS: Robert is a very pleasant 74-year-old female with longstanding history of right knee pain. History and physical examination are consistent with advanced right knee osteoarthrosis. She has been through significant nonoperative management up to this point. Further treatment options were discussed and she has decided to go for the right total knee arthroplasty. The risks of procedure were discussed with her in detail. These risks include, but are not limited to risk of infection, nerve damage, bleeding, pain, and a small risk of deep vein thrombosis which could lead to fatal pulmonary embolism. There is also risk of loosening of the implant which could require revision operation. The patient understands these risks. All of her questions were answered to her satisfaction. An appropriate informed consent was obtained. DESCRIPTION OF THE PROCEDURE: The patient identified in preoperative holding area. The surgical site was marked by both the patient and myself. She was given 2 grams of Ancef IV for prophylactic purposes. She was then transferred to the operative suite. She was placed supine on the operating room table. A spinal anesthetic was then administered and dosed per the anesthesia department without apparent complication. Examination under anesthesia was then performed. The patient was 2-3 degrees shy of full extension. She had 100 degrees of flexion. The medial collateral ligament, lateral collateral ligament and posterior cruciate ligaments were stable. Tourniquet was then placed high on the right upper thigh well-padded in preparation for surgery. The patient's right lower extremity was than prepped and draped in the usual sterile fashion. Standard surgical pause was undertaken to ensure that we were operating on the correct site and that appropriate preoperative antibiotics had been given. All staff in the room were in agreement and we proceeded. The outlines of the patella were marked with surgical pen. A planned 12 cm vertical incision was centered over the patella. It was marked with surgical pen. Leg was then exsanguinated with an Esmarch dressing. The knee was then flexed and the tourniquet was inflated to 250 mmHg. The total tourniquet time for the procedure was 45 minutes. Incision was then made with a 10 blade scalpel. Dissection was carried down sharply to overlying fascia. Great care was taken to minimize the skin flaps. The knee was then exposed using a standard medial parapatellar approach. A small cuff of quadriceps tendon was then left for suturing. She was in a bit of varus preoperatively. A standard medial release was then made. The superficial medial collateral ligament was dissected off of the bone around to the posterior aspect of the proximal tibia. The medial meniscus was then excised as well. The lateral meniscus was also released anteriorly. The leg was then externally rotated. The patella was everted. The knee was flexed. The retractor was then placed to protect the collateral ligaments. I then proceeded to remove the infrapatellar fat pad. This was excised sharply tangentially with fibers of the patellar tendon. I then proceeded to remove the peripheral osteophytes. This was done with a rongeur. I then proceeded with the distal femoral resection. She did have near full extension. A planned 9 mm resection was then done. The femoral canal was then entered in midline in the femur approximately 10 mm anterior to the origin of the posterior cruciate ligament. The lazaro was then advanced on the center of the femur and placed intramedullary. Based on the preoperative radiographs, the angle between the anatomic and mechanical axis of the femur was approximately 4-5 degrees. The valgus angle of the distal femoral cutting guide was then set at 4 degrees for the right knee. The distal cutting guide was then advanced over the intramedullary lazaro. This was seated firmly against the femur. I then as mentioned planned to take 9 mm off the distal femur. The cutting block was then secured onto the femur with pins. The jig was then removed. The distal femoral cut was made through the slot of the block. The pins were then removed. The distal femoral cutting block was removed. The accuracy of the distal femoral cuts was checked with 2 flat bars. I then proceeded with femoral sizing. Posterior referencing sizing guide was held firmly against the resected distal surface of the femur. The posterior condyles were resting on the posterior plane of the guide. The sizing stylus was then placed onto the anterior femur. The size was measured as a size 8. I then assessed for femoral rotation. Plan was for 3 degrees of external rotation. Three degrees of external rotation was placed onto the jig. These holes were then marked. I then confirmed the rotation by 3 separate methods. This was done using epicondylar axis as well as Whitesides line and posterior referencing. It was deemed that the external rotation was proper. I then went forward placing the femoral cutting block. This was placed over the previously placed pin holes. The Michel wing was then placed onto the anterior slots to ensure that we would not notch the anterior femur with the anterior femoral cut. I then proceeded with the anterior femoral cut. This was flush with the anterior cortex of the femur. Posterior cuts were then made followed by the anterior chamfer cut, then the posterior chamfer cut. The cutting block was then removed. Throughout the resection, the collateral ligaments were protected with retractors. I then placed a trial size 8 femur. It was slightly wide mediolateral, but the narrow fit very nicely and it fit flush with the distal end of the femur. The drill holes were then made. I then proceeded with the tibial cut. I planned for cruciate retaining knee. The guide was placed and set for varus, valgus and for slope. The height was set for approximate 2 mm resection from the medial tibial plateau which was the lower side. I was happy with the alignment and the amount of resection. The cutting block was then pinned to the proximal tibia. The alignment lazaro was removed. The proximal tibia was resected with a reciprocating saw. Again, this was done with retractors protecting the collateral ligaments as well as the posterior cruciate ligament. I then proceeded to evaluate the flexion and extension gaps. A 10 mm block was then placed. The flexion and extension gaps were equal. I then proceeded with resection of posterior osteophytes. She had very minimal posterior osteophytes. This was done using curved osteotome. This resected the posterior osteophytes and posterior capsule stripping was done off the posterior aspect of the femur at this time. The osteophytes were then removed. I then proceeded with resection of the patella. The thickness of the patella was measured using the caliper. The thickness was 22 mm. The thickness of the anticipated patellar dome was taken into account. Resection was then performed and confirmed to be equal in 4 quadrants using a caliper. Approximately 14 mm of bone remained after resection. A 29 x 8 mm standard patellar trial was then placed. The holes were drilled and the trial was then placed. I then proceeded with sizing tibial plate. A size D tibial plate fit very nicely. I then proceeded to trial the femur, the tibial tray and patellar button. A 10 mm trial tibial insert was also placed. The components fit very nicely. She had full extension and flexion. The extension and flexion gaps were equal and stable to both varus and valgus stress. The patella tracked appropriately. The tibial tray rotation was then marked with a Bovie. This was externally rotated properly. I then proceed with tibial preparation. I first drilled the femoral holes and removed femoral component. Tibial tray was then set for proper external rotation as well as mediolateral placement onto the tibia. It was then pinned into place. I then proceeded with punching the keel. I then proceeded with cementing of all of our components. The knee was thoroughly irrigated with sterile saline solution via pulse lavage. The lateral geniculate artery was identified and cauterized. All blood was removed from the bone of the tibia, femur and patella with pulse lavage. I then proceed with cementing. Two packs of antibiotic bone cement prepared on the back table by the electromechanical technician. I then proceeded with cementing the tibia first. The cement was impacted in the keel as well as deeply seated into the bone. A second coat cement was then placed. The tibia was then impacted into place. Excess cement was removed with Gilda's and Joker's. I then proceeded with cementing the femoral component. The femoral component was also cemented using standard technique. Excess cement was removed. The 10 mm trial insert was then placed into the knee. It was brought into full extension with a constant axial load placed until the cement had hardened. The patellar component was then cemented. This was held firmly with a compressive device until the cement had dried. When the cement had dried, the knee was taken out of extension. All excess cement was removed from around the prosthesis. I then trialed the knee with a 10 mm insert. Flexion and extension gaps were appropriate. The knee was stable. It came into full extension. I decided to go forward with a 10 mm medial congruent cross-linked cruciate- retaining tibial insert. Polyethylene was then placed onto the tibial tray and locked into place. The knee was then reduced. The knee was again further irrigated with sterile saline solution with antibiotic added. The tourniquet was then deflated. Total tourniquet time for the procedure was 45 minutes at 250 mmHg. Final components were Danielle Persona size 8 narrow cruciate-retaining femoral component. Size D tibial tray, a 10 mm medial congruent cruciate-retaining polyethylene insert, and a 29 x 8 mm patella. I then proceeded with closure. Again, the knee was thoroughly irrigated. The quadriceps tendon and the medial retinaculum were reapproximated with #2 Ethibond suture. The extensor mechanism was then closed with a running #2 Quill suture. Subcutaneous tissues were closed with 2-0 Vicryl interrupted suture. The skin was closed with a running 3-0 Quill suture. Dermabond was applied to the incision. Sterile compressive dressings were applied. All sponge and needle counts were deemed correct prior to closure. The patient tolerated procedure without apparent complication. She was transferred to the recovery room in stable condition. MMMIQUELL / IJN: [id number] /
[2020-06-03] MEDS ORDERED: traZODone HCL 50 MG TAB PO PRN (12:35)
[2020-06-03] MEDS ORDERED: CIPROFLOXACIN HCL 500 MG TAB PO SCH (12:45)
[2020-06-03] MEDS: PANTOPRAZOLE 40 MG TABLET PO SCH (13:10)
[2020-06-03 13:20] LABS: African American GFR (CKD) 74 (>60 ml/min/1.73 sqM); Anion Gap 6 mmol/L; Blood Urea Nitrogen 17 mg/dL (7-17); Calcium 9.1 mg/dL (8.4-10.2); Carbon Dioxide 20 mmol/L (22-30); Chloride 112 mmol/L (98-107); Glucose 120 mg/dL (74-99); Non-African American GFR(CKD) 64 (>60 ml/min/1.73 sqM); Potassium 4.3 mmol/L (3.5-5.1); Sodium 138 mmol/L (137-145)
[2020-06-03 13:50] LABS: Appearance,Urine Clear (Clear); Bilirubin,Urine Negative (Negative); Blood,Urine Negative (Negative); Color,Urine Light Yellow; Glucose,Urine (UA) Negative (Negative); Ketones,Urine Negative (Negative); Leukocyte Esterase,Urine Negative (Negative); Nitrite,Urine Negative (Negative); PH, Urine 6.5 (5.0-8.0); Protein,Urine Negative (Negative); Specific Gravity,Urine 1.011 (1.001-1.035); Urobilinogen,Urine <2.0 mg/dL (<2.0)
--- NOTE | 2020-06-03 18:07 | CONS ---
CONSULTATION REASON FOR CONSULTATION: Advice regarding DJD and other multiple medical issues, requested by Dr. Lyman. HISTORY OF PRESENT ILLNESS: This 74-year-old with a past medical history of DJD, history of psoriasis, history of lung infection 4 years ago being followed by Dr. Gato Cardoso in the outpatient setting is also being treated for UTI. Currently the patient underwent right total knee arthroplasty by Dr. Lyman. The patient tolerated the procedure well. Patient complains of minimal abdominal pain, may be due to hunger according to her. There is no history of chest pain, palpitation, headache, loss of consciousness, nausea, vomiting, diarrhea, fever, rigors or chills at this time. PAST MEDICAL HISTORY: DJD, history of recurrent UTI, history of psoriasis, lung infection previously. MEDICATIONS: Trazodone, Maxzide, Zoloft, Cosentyx, Lipitor, coenzyme Q, turmeric, vitamin D3, Cipro, Tylenol, Aleve. Doses reviewed. ALLERGIES: ADHESIVE TAPES, BACTRIM. FAMILY HISTORY: No history of heart disease or strokes in the family. SOCIAL HISTORY: No history of smoking. No history of alcohol intake. REVIEW OF SYSTEMS: ENT: No diminished hearing. No diminished vision. CARDIOVASCULAR: No angina or palpitations. RESPIRATION as mentioned earlier. GI: As mentioned earlier. : No dysuria. NERVOUS SYSTEM: No numbness, weakness. ALLERGY/IMMUNOLOGY: No asthma or hayfever. MUSCULOSKELETAL as mentioned earlier. HEMATOLOGY/ONCOLOGY: No history of anemia. ENDOCRINE: No history of diabetes or hypothyroidism. CONSTITUTIONAL: As mentioned earlier. DERMATOLOGY negative. RHEUMATOLOGY: Negative. PSYCHIATRY: As mentioned. PHYSICAL EXAM: Alert and oriented times three. Pulse 74, blood pressure 120/60, respiration 18, temperature normal, pulse ox 97% on room air. HEENT: Conjunctive normal. NECK: No JVD. CARDIOVASCULAR: S1, S2 muffled. RESPIRATION: Breath sounds diminished in the bases. No rhonchi. No crackles. ABDOMEN: Soft, nontender. LEGS status post right knee arthroplasty. NERVOUS SYSTEM: Higher functions as mentioned. Moves all 4 limbs. No focal deficits. LYMPHATICS: No lymph nodes palpable in the neck, axillae or groin. SKIN: No ulcer. No rash and no bleeding. JOINTS: No deforming arthropathy. LABS: Covid 19 is negative. The preoperative labs, hematology is within normal limits. Coags are normal. Creatinine is 1.07. ASSESSMENT: 1. Status post right total knee arthroplasty. 2. Increased creatinine with possible chronic kidney disease stage 3 previously. 3. History of degenerative joint disease. 4. History of current urinary tract infection. 5. History of psoriasis. 6. History of lung infection. 7. History of degenerative joint disease. 8. Obesity body mass 32.1. 9. FULL CODE. RECOMMENDATIONS AND DISCUSSION: In this 74-year-old woman who presented after surgery, at this time, I recommend to continue current medications, symptomatic treatment. Resume the home medications. DVT prophylaxis. Incentive spirometry. I would also recommend continue with IV fluids. Repeat labs. We will follow the patient closely with you and patient may be asked to follow up closely with Dr. Cardoso after discharge. Thank you Dr. Lyman for letting us participate in the care of this patient. Continue IV fluids at this time. The patient is started on lactate Ringer fluids. MMODL / IJN: [id number] /
[2020-06-03] MEDS: HYDROcodone/APAP 5-325MG 1 EACH TAB PO PRN (19:24)
[2020-06-03] MEDS ORDERED: SERTRALINE 50 MG TAB PO SCH (21:00)
[2020-06-03] MEDS ORDERED: SENNOSIDES-DOCUSATE SODIUM 1 EACH TAB PO SCH (21:00)
[2020-06-03] MEDS ORDERED: ATORVASTATIN 20 MG TAB PO SCH (21:00)
[2020-06-03] MEDS: ASPIRIN 81 MG PO SCH (21:13)
[2020-06-04] MEDS: LACTATED RINGERS 1,000 ML IV SCH ×2 (03:33→06:19)
[2020-06-04 05:14] LABS: Basophils % (A) 0 %; Eosinophils # (A) 0.1 k/uL (0-0.7); Eosinophils % (A) 1 %; Lymphocytes # (A) 0.6 k/uL (1.0-4.8); Lymphocytes % (A) 9 %; MCH 29.2 pg (25.0-35.0); MCHC 35.4 g/dL (31.0-37.0); MCV 82.6 fL (80.0-100.0); Mean Platelet Volume 6.6; Monocytes # (A) 0.4 k/uL (0-1.0); Monocytes % (A) 5 %; Neutrophils # (A) 5.9 k/uL (1.3-7.7); Neutrophils % (A) 85 %; Platelet Count 131 k/uL (150-450); RBC 3.14 m/uL (3.80-5.40); RDW 14.8 % (11.5-15.5); WBC 6.9 k/uL (3.8-10.6)
[2020-06-04 05:33] LABS: HGB 9.2 gm/dL (11.4-16.0)
[2020-06-04 07:32] VITALS: BP 120/80; PULSE 74; RESP 17; TEMP 97.9
--- NOTE | 2020-06-04 07:45 | P.PN ---
Progress Note - Text 06/04/20 712am Old female status post total knee replacement by Dr. Lyman. Patient has an On- Q pump for postop pain control solution running at 8 mL an hour with a VAS of 3 at rest dressing clean dry and intact. Plan to continue On-Q pump
[2020-06-04] MEDS ORDERED: NON FORMULARY DRUG (Ubidecarenone [Co Q-10] 100 MG Capsule) PO SCH (09:00)
[2020-06-04] MEDS ORDERED: TRIAMTERENE-HCTZ 37.5-25MG 1 EACH TAB PO SCH (09:00)
[2020-06-04] MEDS ORDERED: CHOLECALCIFEROL 25 MCG (1000 IU) TABLET PO SCH (09:00)
[2020-06-04] MEDS: ASPIRIN 81 MG PO SCH (09:39)
[2020-06-04] MEDS: HYDROcodone/APAP 5-325MG 1 EACH TAB PO PRN (09:42)
[2020-06-04] MEDS: PANTOPRAZOLE 40 MG TABLET PO SCH (10:31)
[2020-06-04] MEDS ORDERED: MULTIVITAMINS, THERA 1 EACH TAB PO SCH (12:00)
--- NOTE | 2020-06-04 14:49 | P.DS ---
Providers Expected date of discharge: 06/04/20 Attending physician: Gianni Lyman Consults: 06/03/20 08:58 Consult Physician Routine Consulting Provider: Consuelo Donovan Consult Reason/Comments: post op medical management Do you want consulting provider notified?: Yes Primary care physician: Gato Cardoso MD - Discharge Diagnosis(es) (1) S/P total knee arthroplasty Patient was admitted to the OR on 06/03/20 to undergo a right total knee arthroplasty. She had failed conservative measures as an outpatient and desired to proceed with elective surgery after given informed consent. She underwent the above procedure which she tolerated well without complication. Postoperative hospital course has remained without complication. On day of discharge she is afebrile, vital signs stable, labs within acceptable ranges, tolerating by mouth meds and diet, voiding without difficulty, positive flatus, denies abdominal pain or calf pain, pain is controlled on oral pain medication and has no new co mplaints. Wound is benign, neurovascular status is intact, calf is soft and nontender, abdomen soft and nontender. Review of systems is negative for numbness, tingling, fever, chills, chest pain, shortness of breath, nausea, vomiting, dizziness, headaches, slurred speech or other. Status: Acute Priority: Medium Procedures: Right TKA Patient Condition at Discharge: Good Plan - Discharge Summary Discharge Rx Participant: Yes New Discharge Prescriptions: New Aspirin [Adult Low Dose Aspirin EC] 81 mg PO BID #60 tablet. Docusate [Colace] 100 mg PO BID #60 capsule HYDROcodone/APAP 7.5-325MG [[place] 7.5-325] 1 - 2 each PO Q6HR PRN #42 tab PRN Reason: Pain No Action traZODone HCL 50 mg PO HS PRN PRN Reason: sleeping Cholecalciferol [Vitamin D3 (25 Mcg = 1000 Iu)] 5,000 unit PO DAILY Atorvastatin [Lipitor] 20 mg PO HS Triamterene-Hctz 37.5-25Mg [Maxzide 37.5-25] 1 tab PO Q2D Sertraline [Zoloft] 50 mg PO HS Ubidecarenone [Co Q-10] 100 mg PO DAILY Cranberry Fruit Extract [Theracran] 650 mg PO DAILY Naproxen Sodium [Aleve] 220 mg PO BID PRN PRN Reason: Pain Acetaminophen [Tylenol] 1,000 mg PO Q6H PRN PRN Reason: Pain Secukinumab [Cosentyx Pen] 150 mg SQ Q30D Turmeric Root Extract [Turmeric] 500 mg PO DAILY Ciprofloxacin HCl [Cipro] 500 mg PO BID Discharge Medication List Atorvastatin [Lipitor] 20 mg PO HS 06/04/18 [History] Cholecalciferol [Vitamin D3 (25 Mcg = 1000 Iu)] 5,000 unit PO DAILY 06/04/18 [History] Cranberry Fruit Extract [Theracran] 650 mg PO DAILY 06/04/18 [History] Sertraline [Zoloft] 50 mg PO HS 06/04/18 [History] Triamterene-Hctz 37.5-25Mg [Maxzide 37.5-25] 1 tab PO Q2D 06/04/18 [History] Ubidecarenone [Co Q-10] 100 mg PO DAILY 06/04/18 [History] traZODone HCL 50 mg PO HS PRN 06/04/18 [History] Acetaminophen [Tylenol] 1,000 mg PO Q6H PRN 05/28/20 [History] Naproxen Sodium [Aleve] 220 mg PO BID PRN 05/28/20 [History] Secukinumab [Cosentyx Pen] 150 mg SQ Q30D 05/28/20 [History] Turmeric Root Extract [Turmeric] 500 mg PO DAILY 05/28/20 [History] Ciprofloxacin HCl [Cipro] 500 mg PO BID 06/02/20 [History] Aspirin [Adult Low Dose Aspirin EC] 81 mg PO BID #60 tablet.dr 06/04/20 [Rx] Docusate [Colace] 100 mg PO BID #60 capsule 06/04/20 [Rx] HYDROcodone/APAP 7.5-325MG [[place] 7.5-325] 1 - 2 each PO Q6HR PRN #42 tab 06/04/20 [Rx] Follow up Appointment(s)/Referral(s): [facility] [NON-STAFF] - 1 Week [facility], [NON-STAFF] - 1 Week Gianni Lyman MD [STAFF PHYSICIAN] - 06/15/20 10:00 am Patient Instructions/Handouts: *Surgery [facility] - On-Q Pain Pump Discharge Instructions Activity/Diet/Wound Care/Special Instructions: Keep wound clean and dry. Take meds as directed. Follow-up with Dr. Lyman in office. Weight bear as tolerated. May shower in 3 days if no bleeding. Discharge Disposition: HOME WITH HOME HEALTH SERVICES
--- NOTE | 2020-06-04 16:20 | PN ---
PROGRESS NOTE DATE OF SERVICE: 06/04/2020 This 74-year-old woman was admitted with multiple medical problems, had surgery of the right knee. The patient improved significantly. No chest pain. No palpitations. No fever. PHYSICAL EXAMINATION: Alert and oriented x3. Pulse is 74, blood pressure 120/80, respiration 17, temperature 97.9, pulse ox 96% on room air. HEENT: Conjunctivae normal. NECK: No jugular venous distention. CARDIOVASCULAR: S1, S2 muffled. RESPIRATORY: Breath sounds diminished at the bases. No rhonchi, no crackles. ABDOMEN: Soft, nontender. LEGS: Status post right knee arthroplasty. LABS: WBC 6.9, hemoglobin 9.2. ASSESSMENT: 1. Status post right total knee arthroplasty. 2. Increased creatinine with possible chronic kidney disease stage 3 previously. 3. History of degenerative joint disease. 4. History of current urinary tract infection, improved after completed course of antibiotics. 5. History of psoriasis. 6. History of lung infection. 7. Obesity with body mass of 32.1. 8. FULL CODE. RECOMMENDATIONS AND DISCUSSION: Recommend to continue current medications and continues symptomatic treatment. Otherwise follow closely with primary physician and repeat labs with Dr. Gato Cardoso and further recommendations to follow. Recommend to follow up with Orthopedic Surgery. Further recommendations to follow. MMODL / IJN: [id number] /
== END 2020-06-04 13:30 | disposition home health service (06) ==
LOC: OR 05:36 → 5NMEDONC 10:57 → OR 06-04 13:30
PROVIDERS: ATTEND Orthopaedic Surgery Sports Medicine
DX: M17.11 Unilateral primary osteoarthritis, right knee (principal); M21.161 Varus deformity, not elsewhere classified, right knee; L40.9 Psoriasis, unspecified; F32.9 Major depressive disorder, single episode, unspecified; R42 Dizziness and giddiness; Z97.3 Presence of spectacles and contact lenses; R45.0 Nervousness; Z90.710 Acquired absence of both cervix and uterus; Z96.652 Presence of left artificial knee joint; Z83.3 Family history of diabetes mellitus; Z82.49 Family history of ischemic heart disease and other diseases of the circulatory system; I10 Essential (primary) hypertension; E78.5 Hyperlipidemia, unspecified; Z79.1 Long term (current) use of non-steroidal anti-inflammatories (NSAID); Z79.891 Long term (current) use of opiate analgesic; Z79.899 Other long term (current) drug therapy; Z88.2 Allergy status to sulfonamides; Z91.09 Other allergy status, other than to drugs and biological substances; E66.9 Obesity, unspecified; Z68.32 Body mass index [BMI] 32.0-32.9, adult; Z87.440 Personal history of urinary (tract) infections
CPT/HCPCS: 97116; 97161; 64999; 64448; 76942; 80048; 85025; 81003; 88300; 87635; 73560; 27447; C1776; C1713; J2250; J1100; J0690; J2405; J3010; J2795 ×2; J2704; J1170

== ENCOUNTER → 2023-07-23 | Outpatient (CLI) | payer MEDICARE, BC ==
--- NOTE | 2023-07-24 08:47 | PE ---
EXAMINATION TYPE: PET CT fusion skull to thigh DATE OF EXAM: 07/23/2023 CLINICAL INDICATION:Female, 77 years old with history of R91.1 LUNG NODULE; TECHNIQUE: Following the intravenous administration of 9.21 mCi of F-18 FDG, whole body images are performed from the skull base to the midthigh. Images are reviewed on the computer in the coronal, a xial, and sagittal planes. Reconstructed rotating images are created on independent workstation and reviewed on the computer. A non-contrast CT is performed in conjunction with the PET scan. Glucose level 84 mg/dL CT DLP: 537 mGycm, Automated exposure control for dose reduction was used. COMPARISON: CT None, PET/CT None, FINDINGS: Mediastinal SUV mean is 2.8. Hepatic parenchyma SUV mean is 3.1 SKULL BASE AND NECK: No suspicious radiotracer activity. CHEST, MEDIASTINUM, AND HILAR REGION: * 13 mm right upper lobe pulmonary nodule Max SUV 1.3. * There is some nonenlarged lymph nodes in the mediastinum which have increased metabolic activity e xamples include * Right low paratracheal measuring Max SUV 4.4 and 7 mm in short axis. * AP window max SUV 2.3 measuring 7 mm in short axis. ABDOMEN AND PELVIS: No suspicious radiotracer activity. MUSCULOSKELETAL STRUCTURES: No suspicious radiotracer activity. OTHER CT: Atherosclerosis of the arterial vasculature including the coronary arteries.Borderline Hepa tic steatosis. The uterus is surgically absent. IMPRESSION: 1. 13 mm right upper lobe pulmonary nodule with metabolic activity up below background levels. Surve illance with CT imaging recommended in 3 months. There is favored granulomatous change at this time. 2. Few nonenlarged mildly FDG avid lymph nodes in the mediastinum favored to be reactive. Attention follow-up surveillance CT.
== END | disposition home or self-care (01) ==
LOC: RADPETMAIN 11:47
PROVIDERS: ATTEND Family Medicine
DX: R91.1 Solitary pulmonary nodule (principal)
CPT/HCPCS: 78815; A9552